=== PATIENT | male | born 1930 | race Caucasian/White ===

== ENCOUNTER 2016-09-15 15:30 | Inpatient (IN) ==
[~2016-09-15 15:30] MED LIST: ADDITIVE ONLY IV ONE; INFUVITE ADULT IV ONE; POTASSIUM CHLORIDE IV ONE; [UNRECOGNIZED DRUG - OTHER] IV ONE
[2016-09-15 15:49] VITALS: BMI 21.2
[2016-09-15] MEDS ORDERED: TYLENOL PO PRN (16:38)
[2016-09-15] MEDS ORDERED: NITROSTAT SL PRN (17:00)
[2016-09-15] MEDS: ZOSYN 3.375 GM 3.375 GM in SODIUM CHLORIDE 100 ML IV SCH ×2 (18:17→23:00)
[2016-09-15] MEDS: CALMOSEPTINE OINTMENT TP SCH (20:35)
[2016-09-15] MEDS ORDERED: CLINIMIX E 4.25%-5% SOLUTION 1,000 ML IV ONE (22:00)
[2016-09-16 05:10] LABS: BASOPHILS % (AUTO) 0.4 % (0.0-3.0); EOSINOPHILS # (AUTO) 0.5 K/ul (0.0-0.7); EOSINOPHILS % (AUTO) 5.6 % (0.0-7.0); HEMATOCRIT 33.2 % (42.0-52.0); HEMOGLOBIN 10.6 g/dl (14.0-18.0); IMMATURE GRANULOCYTE % (AUTO) 0.6 % (0.0-5.0); LYMPHOCYTES # (AUTO) 0.6 K/uL (0.60-3.4); LYMPHOCYTES % (AUTO) 7.7 (10.0-50.0); MEAN CORPUSCULAR HEMOGLOBIN 27.4 pg (27.0-31.0); MEAN CORPUSCULAR HGB CONC 31.9 (31.8-35.4); MEAN CORPUSCULAR VOLUME 85.8 fl (80.0-94.0); MONOCYTES # (AUTO) 0.7 K/uL (0.4-2.0); MONOCYTES % (AUTO) 8.9 (0-10); NEUTROPHILS # (AUTO) 6.1 K/ul (2.0-6.9); NEUTROPHILS % (AUTO) 76.8; PLATELET COUNT 203 10^3/uL (140-440); RED BLOOD COUNT 3.87 10^6/ul (4.70-6.10); WHITE BLOOD COUNT 7.97 K/ul (4.2-10.2)
[2016-09-16 05:36] LABS: ALBUMIN 1.5 g/dL (3.4-5.0); ALBUMIN/GLOBULIN RATIO 0.41; ANION GAP 7.2; BILIRUBIN,TOTAL 0.84 mg/dL (0.00-1.20); BUN/CREATININE RATIO 18.57; CALCIUM 7.4 mg/dL (8.2-10.2); CREATININE 0.7 mg/dL (0.60-1.10); POTASSIUM 4.2 mmol/L (3.5-5.1); TOTAL PROTEIN 5.2 g/dL (5.8-8.1)
[2016-09-16] MEDS: ZOSYN 3.375 GM 3.375 GM in SODIUM CHLORIDE 100 ML IV SCH ×4 (06:03→23:07)
[2016-09-16] MEDS: LOVENOX SUBCUT SCH (09:31)
[2016-09-16] MEDS: CALMOSEPTINE OINTMENT TP SCH ×2 (09:31→20:19)
[2016-09-16] MEDS: VITAMIN B-12 IM SCH (09:31)
[2016-09-16] MEDS: CORDARONE PO SCH (09:32)
[2016-09-16] MEDS ORDERED: INTRALIPID 20% IV ONE (14:00)
[2016-09-16] MEDS ORDERED: CALMOSEPTINE OINTMENT TP ONE (20:18)
[2016-09-17] MEDS ORDERED: POTASSIUM CHLORIDE IV ONE (01:30)
[2016-09-17] MEDS ORDERED: [UNRECOGNIZED DRUG - OTHER] IV ONE (01:30)
[2016-09-17] MEDS ORDERED: INFUVITE ADULT IV ONE (01:30)
[2016-09-17] MEDS ORDERED: ADDITIVE ONLY IV ONE (01:30)
[2016-09-17] MEDS: ZOSYN 3.375 GM 3.375 GM in SODIUM CHLORIDE 100 ML IV SCH ×3 (05:19→18:15)
[2016-09-17] MEDS: CALMOSEPTINE OINTMENT TP SCH (09:54)
[2016-09-17] MEDS: CORDARONE PO SCH (09:54)
[2016-09-17] MEDS: LOVENOX SUBCUT SCH (09:54)
[2016-09-17] MEDS ORDERED: CLINIMIX E 4.25%-5% SOLUTION 1,000 ML IV ONE (11:30)
[2016-09-18] MEDS: CALMOSEPTINE OINTMENT TP SCH ×3 (00:15→21:02)
[2016-09-18] MEDS: ZOSYN 3.375 GM 3.375 GM in SODIUM CHLORIDE 100 ML IV SCH ×5 (00:17→23:39)
[2016-09-18] MEDS ORDERED: INTRALIPID 20% IV ONE (04:00)
[2016-09-18 05:47] LABS: BASOPHILS # (AUTO) 0.1 K/uL (0-0.2); BASOPHILS % (AUTO) 0.7 % (0.0-3.0); EOSINOPHILS # (AUTO) 0.5 K/ul (0.0-0.7); EOSINOPHILS % (AUTO) 6.2 % (0.0-7.0); HEMATOCRIT 32.7 % (42.0-52.0); HEMOGLOBIN 10.8 g/dl (14.0-18.0); IMMATURE GRANULOCYTE % (AUTO) 2.6 % (0.0-5.0); LYMPHOCYTES % (AUTO) 10.9 (10.0-50.0); MEAN CORPUSCULAR VOLUME 84.7 fl (80.0-94.0); MONOCYTES # (AUTO) 0.9 K/uL (0.4-2.0); MONOCYTES % (AUTO) 10.5 (0-10); NEUTROPHILS # (AUTO) 6.1 K/ul (2.0-6.9); NEUTROPHILS % (AUTO) 69.1; PLATELET COUNT 255 10^3/uL (140-440); RED BLOOD COUNT 3.86 10^6/ul (4.70-6.10); WHITE BLOOD COUNT 8.77 K/ul (4.2-10.2)
[2016-09-18 06:11] LABS: ALBUMIN 1.6 g/dL (3.4-5.0); ALBUMIN/GLOBULIN RATIO 0.37; ANION GAP 9.2; BILIRUBIN,TOTAL 0.75 mg/dL (0.00-1.20); BUN/CREATININE RATIO 21.42; CALCIUM 7.6 mg/dL (8.2-10.2); CREATININE 0.7 mg/dL (0.60-1.10); POTASSIUM 4.2 mmol/L (3.5-5.1); TOTAL PROTEIN 5.9 g/dL (5.8-8.1)
[2016-09-18] MEDS: VITAMIN B-12 IM SCH (10:37)
[2016-09-18] MEDS: LOVENOX SUBCUT SCH (10:38)
[2016-09-18] MEDS: CORDARONE PO SCH (10:38)
[2016-09-18] MEDS ORDERED: INFUVITE ADULT IV ONE (16:00)
[2016-09-18] MEDS ORDERED: POTASSIUM CHLORIDE IV ONE (16:00)
[2016-09-18] MEDS ORDERED: ADDITIVE ONLY IV ONE (16:00)
[2016-09-18] MEDS ORDERED: [UNRECOGNIZED DRUG - OTHER] IV ONE (16:00)
[2016-09-19] MEDS ORDERED: POTASSIUM CHLORIDE 20 MEQ VIAL-ADDITIVE ONLY IV ONE (01:52)
[2016-09-19] MEDS ORDERED: INFUVITE ADULT IV ONE (01:53)
[2016-09-19] MEDS: INFUVITE ADULT IV ONE (02:00)
[2016-09-19] MEDS: [UNRECOGNIZED DRUG - OTHER] IV ONE (02:00)
[2016-09-19] MEDS: ADDITIVE ONLY IV ONE (02:00)
[2016-09-19] MEDS ORDERED: CLINIMIX E 4.25%-5% SOLUTION 1,000 ML IV ONE (02:00)
[2016-09-19] MEDS: POTASSIUM CHLORIDE IV ONE (02:00)
[2016-09-19] MEDS: ZOSYN 3.375 GM 3.375 GM in SODIUM CHLORIDE 100 ML IV SCH ×4 (05:16→23:42)
[2016-09-19] MEDS: LOVENOX SUBCUT SCH (09:55)
[2016-09-19] MEDS: CORDARONE PO SCH (09:55)
[2016-09-19] MEDS: CALMOSEPTINE OINTMENT TP SCH ×2 (09:55→20:19)
[2016-09-19] MEDS ORDERED: INTRALIPID 20% IV ONE (18:00)
[2016-09-20 04:52] LABS: BASOPHILS # (AUTO) 0.1 K/uL (0-0.2); BASOPHILS % (AUTO) 0.7 % (0.0-3.0); EOSINOPHILS # (AUTO) 0.5 K/ul (0.0-0.7); EOSINOPHILS % (AUTO) 5.9 % (0.0-7.0); HEMOGLOBIN 10.3 g/dl (14.0-18.0); LYMPHOCYTES % (AUTO) 12.5 (10.0-50.0); MEAN CORPUSCULAR HEMOGLOBIN 27.2 pg (27.0-31.0); MEAN CORPUSCULAR HGB CONC 31.2 (31.8-35.4); MEAN CORPUSCULAR VOLUME 87.1 fl (80.0-94.0); MONOCYTES # (AUTO) 0.6 K/uL (0.4-2.0); MONOCYTES % (AUTO) 7.3 (0-10); NEUTROPHILS # (AUTO) 5.4 K/ul (2.0-6.9); NEUTROPHILS % (AUTO) 71.6; PLATELET COUNT 235 10^3/uL (140-440); RED BLOOD COUNT 3.79 10^6/ul (4.70-6.10); WHITE BLOOD COUNT 7.58 K/ul (4.2-10.2)
[2016-09-20 05:03] LABS: ALBUMIN 1.5 g/dL (3.4-5.0); ALBUMIN/GLOBULIN RATIO 0.42; ANION GAP 10.4; BILIRUBIN,TOTAL 0.68 mg/dL (0.00-1.20); BUN/CREATININE RATIO 22.05; CALCIUM 7.5 mg/dL (8.2-10.2); CREATININE 0.68 mg/dL (0.60-1.10); POTASSIUM 4.4 mmol/L (3.5-5.1); TOTAL PROTEIN 5.1 g/dL (5.8-8.1)
[2016-09-20] MEDS: ZOSYN 3.375 GM 3.375 GM in SODIUM CHLORIDE 100 ML IV SCH ×4 (05:24→23:02)
[2016-09-20] MEDS: LOVENOX SUBCUT SCH (11:02)
[2016-09-20] MEDS: CALMOSEPTINE OINTMENT TP SCH ×2 (11:03→21:31)
[2016-09-20] MEDS: CORDARONE PO SCH (11:04)
[2016-09-20] MEDS: VITAMIN B-12 IM SCH (11:09)
[2016-09-20] MEDS ORDERED: INFUVITE ADULT IV ONE (19:04)
[2016-09-20] MEDS ORDERED: POTASSIUM CHLORIDE 20 MEQ VIAL-ADDITIVE ONLY IV ONE ×2 (19:04→19:06)
[2016-09-20] MEDS: [UNRECOGNIZED DRUG - OTHER] IV ONE (19:56)
[2016-09-20] MEDS: POTASSIUM CHLORIDE IV ONE (19:56)
[2016-09-20] MEDS: ADDITIVE ONLY IV ONE (19:56)
[2016-09-20] MEDS: INFUVITE ADULT IV ONE (19:56)
[2016-09-21] MEDS: ZOSYN 3.375 GM 3.375 GM in SODIUM CHLORIDE 100 ML IV SCH (05:02)
[2016-09-21] MEDS ORDERED: INTRALIPID 20% IV ONE (08:00)
[2016-09-21] MEDS: CORDARONE PO SCH (08:26)
[2016-09-21] MEDS: LOVENOX SUBCUT SCH (08:26)
[2016-09-21] MEDS: CALMOSEPTINE OINTMENT TP SCH (08:26)
[2016-09-21] MEDS: CLINIMIX E 4.25%-5% SOLUTION 1,000 ML IV ONE ×2 (09:09→09:10)
[2016-09-21] MEDS ORDERED: [UNRECOGNIZED DRUG - OTHER] IV ONE (20:00)
[2016-09-21] MEDS ORDERED: INFUVITE ADULT IV ONE (20:00)
[2016-09-21] MEDS ORDERED: POTASSIUM CHLORIDE IV ONE (20:00)
[2016-09-21] MEDS ORDERED: ADDITIVE ONLY IV ONE (20:00)
[2016-09-22] MEDS: CALMOSEPTINE OINTMENT TP SCH ×3 (00:58→23:49)
[2016-09-22 05:26] LABS: BASOPHILS # (AUTO) 0.1 K/uL (0-0.2); BASOPHILS % (AUTO) 0.8 % (0.0-3.0); EOSINOPHILS # (AUTO) 0.4 K/ul (0.0-0.7); EOSINOPHILS % (AUTO) 4.6 % (0.0-7.0); HEMATOCRIT 34.2 % (42.0-52.0); HEMOGLOBIN 11.3 g/dl (14.0-18.0); IMMATURE GRANULOCYTE % (AUTO) 1.4 % (0.0-5.0); LYMPHOCYTES # (AUTO) 1.2 K/uL (0.60-3.4); LYMPHOCYTES % (AUTO) 14.4 (10.0-50.0); MEAN CORPUSCULAR HEMOGLOBIN 28.3 pg (27.0-31.0); MEAN CORPUSCULAR VOLUME 85.5 fl (80.0-94.0); MONOCYTES # (AUTO) 0.6 K/uL (0.4-2.0); MONOCYTES % (AUTO) 6.5 (0-10); NEUTROPHILS # (AUTO) 6.1 K/ul (2.0-6.9); NEUTROPHILS % (AUTO) 72.3; PLATELET COUNT 311 10^3/uL (140-440); WHITE BLOOD COUNT 8.41 K/ul (4.2-10.2)
[2016-09-22 05:48] LABS: ALBUMIN 1.7 g/dL (3.4-5.0); ALBUMIN/GLOBULIN RATIO 0.38; ANION GAP 12.1; BILIRUBIN,TOTAL 0.7 mg/dL (0.00-1.20); BUN/CREATININE RATIO 21.73; CALCIUM 7.7 mg/dL (8.2-10.2); CREATININE 0.69 mg/dL (0.60-1.10); POTASSIUM 4.1 mmol/L (3.5-5.1); TOTAL PROTEIN 6.2 g/dL (5.8-8.1)
[2016-09-22] MEDS ORDERED: CLINIMIX E 4.25%-5% SOLUTION 1,000 ML IV ONE ×2 (06:00→23:30)
[2016-09-22] MEDS: VITAMIN B-12 IM SCH (09:50)
[2016-09-22] MEDS: LOVENOX SUBCUT SCH (09:50)
[2016-09-22] MEDS: CORDARONE PO SCH (09:50)
[2016-09-22] MEDS ORDERED: [UNRECOGNIZED DRUG - OTHER] IV ONE (14:00)
[2016-09-22] MEDS ORDERED: INFUVITE ADULT IV ONE (14:00)
[2016-09-22] MEDS ORDERED: ADDITIVE ONLY IV ONE (14:00)
[2016-09-22] MEDS ORDERED: POTASSIUM CHLORIDE IV ONE (14:00)
[2016-09-22] MEDS ORDERED: INTRALIPID 20% IV ONE (22:00)
[2016-09-23] MEDS: CORDARONE PO SCH (08:37)
[2016-09-23] MEDS: LOVENOX SUBCUT SCH (08:38)
[2016-09-23] MEDS: CALMOSEPTINE OINTMENT TP SCH (08:39)
[2016-09-23] MEDS ORDERED: INTRALIPID 20% IV ONE (17:00)
[2016-09-24] MEDS: CALMOSEPTINE OINTMENT TP SCH ×3 (02:57→23:37)
[2016-09-24] MEDS ORDERED: POTASSIUM CHLORIDE IV ONE (05:00)
[2016-09-24] MEDS ORDERED: ADDITIVE ONLY IV ONE (05:00)
[2016-09-24] MEDS ORDERED: [UNRECOGNIZED DRUG - OTHER] IV ONE (05:00)
[2016-09-24] MEDS ORDERED: INFUVITE ADULT IV ONE (05:00)
[2016-09-24 06:35] LABS: BASOPHILS # (AUTO) 0.1 K/uL (0-0.2); BASOPHILS % (AUTO) 0.6 % (0.0-3.0); EOSINOPHILS # (AUTO) 0.1 K/ul (0.0-0.7); EOSINOPHILS % (AUTO) 0.9 % (0.0-7.0); HEMATOCRIT 37.6 % (42.0-52.0); HEMOGLOBIN 12.2 g/dl (14.0-18.0); IMMATURE GRANULOCYTE % (AUTO) 0.5 % (0.0-5.0); LYMPHOCYTES # (AUTO) 1.1 K/uL (0.60-3.4); LYMPHOCYTES % (AUTO) 11.5 (10.0-50.0); MEAN CORPUSCULAR HEMOGLOBIN 28.2 pg (27.0-31.0); MEAN CORPUSCULAR HGB CONC 32.4 (31.8-35.4); MONOCYTES # (AUTO) 0.5 K/uL (0.4-2.0); MONOCYTES % (AUTO) 5.6 (0-10); NEUTROPHILS # (AUTO) 7.6 K/ul (2.0-6.9); NEUTROPHILS % (AUTO) 80.9; PLATELET COUNT 317 10^3/uL (140-440); RED BLOOD COUNT 4.32 10^6/ul (4.70-6.10); WHITE BLOOD COUNT 9.39 K/ul (4.2-10.2)
[2016-09-24 06:58] LABS: ALBUMIN 1.9 g/dL (3.4-5.0); ALBUMIN/GLOBULIN RATIO 0.41; ANION GAP 10.5; BILIRUBIN,TOTAL 0.66 mg/dL (0.00-1.20); BUN/CREATININE RATIO 27.53; CALCIUM 8.1 mg/dL (8.2-10.2); CREATININE 0.69 mg/dL (0.60-1.10); POTASSIUM 4.5 mmol/L (3.5-5.1); TOTAL PROTEIN 6.5 g/dL (5.8-8.1)
[2016-09-24] MEDS: VITAMIN B-12 IM SCH (09:12)
[2016-09-24] MEDS: LOVENOX SUBCUT SCH (09:12)
[2016-09-24] MEDS: CORDARONE PO SCH (09:13)
--- NOTE | 2016-09-24 13:10 | PN ---
DATE OF VISIT: 09/24/16 Mr. Morales was a resident at [facility]. The patient was brought to the emergency room because of hematuria secondary to repeated attempts of insertion of Green catheter. The patient on arrival at the [facility] had no urine in the bag. The patient was evaluated and the patient was not responsive to verbal stimulus. He does respond to pain stimulation. His mouth was open and breathing through the mouth. In the course of the work-up the patient was noted to be dehydrated with some electrolyte imbalance with a sodium of 161. The patient fell last July 2016 and the patient continued to deteriorate since then. He did complain of back pain. He did have some compression fractures. The patient has senile dementia, plus Alzheimer's. The patient was admitted on 09/07/16 to acute care and discharged to Transitional care on . He is going to be discharged to the half-way. In the interim, discussion was made with regards to mentating his nutrition. The family decided to just try to feed him instead of having artificial means such as G- tube, nasogastric tube feeding. This directive calls for not prolonging his life with artificial means. The patient has been improving slightly and indeed he opened his eyes upon calling his name. His breathing is not as rapid as before. He does have some ulceration, but the redness of the entire buttocks has resolved. It was markedly irritated at the time of admission and the family had seen it for the first time. This patient will be transferred to the half-way today because of his end stage dementia, Alzheimer's plus senile. The patient is given food, pureed, and sitting while being fed. The patient did have some anemia, but not severe. The patient's temperature today at 6 a.m. was 97.9 axillary, pulse 84, blood pressure 122/64, respiratory rate 24. The patient is using oxygen nasal at 2 Liters. He weighed 137 pounds on admission. His labs today showed a CBC with hemoglobin 12.2, hematocrit 37.6, WBC 9.39. RDW 16.4, elevated. Electrolytes now normal. The hypernatremia has been corrected and the sodium is now 133, potassium 4.5, chloride 101, CO2 26. BUN is 19, creatinine is 0.69. GFR 108. Blood sugar normal at 102. Calcium 8.1. AST slightly elevated at 65, ALT normal. Total protein 6.5, improving and albumin still low at 9.1, globulin 4.6. PROGNOSIS: Poor. The patient is a DNR and will be transferred today to [facility]. DIAGNOSIS: 1. END STAGE ALZHEIMER'S DISEASE 2. MILD TO MODERATE ANEMIA 3. 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 HISTORY OF HYPERTENSION 5. HISTORY OF COMPRESSION FRACTURES The orders to the half-way will be written when he is discharged. DAWSON
[2016-09-25] MEDS: LOVENOX SUBCUT SCH (09:47)
[2016-09-25] MEDS: CORDARONE PO SCH (09:48)
[2016-09-25] MEDS: CALMOSEPTINE OINTMENT TP SCH (09:48)
[2016-09-25] MEDS: MORPHINE 2 MG/ML SYRINGE IVP PRN (16:09)
[2016-09-26] MEDS: CALMOSEPTINE OINTMENT TP SCH ×2 (00:42→08:48)
[2016-09-26 07:28] LABS: BASOPHILS # (AUTO) 0.1 K/uL (0-0.2); BASOPHILS % (AUTO) 0.6 % (0.0-3.0); EOSINOPHILS % (AUTO) 0.1 % (0.0-7.0); HEMATOCRIT 43.2 % (42.0-52.0); HEMOGLOBIN 13.2 g/dl (14.0-18.0); IMMATURE GRANULOCYTE % (AUTO) 0.7 % (0.0-5.0); LYMPHOCYTES # (AUTO) 1.1 K/uL (0.60-3.4); LYMPHOCYTES % (AUTO) 8.7 (10.0-50.0); MEAN CORPUSCULAR HGB CONC 30.6 (31.8-35.4); MEAN CORPUSCULAR VOLUME 91.5 fl (80.0-94.0); MONOCYTES # (AUTO) 0.7 K/uL (0.4-2.0); MONOCYTES % (AUTO) 5.6 (0-10); NEUTROPHILS # (AUTO) 10.7 K/ul (2.0-6.9); NEUTROPHILS % (AUTO) 84.3; PLATELET COUNT 367 10^3/uL (140-440); RED BLOOD COUNT 4.72 10^6/ul (4.70-6.10); WHITE BLOOD COUNT 12.64 K/ul (4.2-10.2)
[2016-09-26 07:44] LABS: ALBUMIN/GLOBULIN RATIO 0.44; ANION GAP 20.4; BUN/CREATININE RATIO 30.18; CALCIUM 8.7 mg/dL (8.2-10.2); CREATININE 1.06 mg/dL (0.60-1.10); POTASSIUM 5.4 mmol/L (3.5-5.1); TOTAL PROTEIN 6.5 g/dL (5.8-8.1)
[2016-09-26] MEDS: LOVENOX SUBCUT SCH (08:49)
[2016-09-26] MEDS: VITAMIN B-12 IM SCH (08:49)
[2016-09-26] MEDS: CORDARONE PO SCH (08:50)
[2016-09-26] MEDS: MORPHINE 2 MG/ML SYRINGE IVP PRN (16:35)
[2016-09-26 17:43] VITALS: BP 102/52; TEMP 97.8
--- NOTE | 2016-09-27 13:52 | PN ---
DATE OF VISIT: 09/26/16 SUBJECTIVE: The patient, relatives, and three children were in the room with Hospice lady. She had discussed about Hospice and their aim is to make him comfortable. The patient had not been eating very much. This patient will be given pureed diet and any liquids that he can drink or tolerate. He will discharged back to the care home. The family has rejected the idea of artificial feeding either of PEG tube or central line. I did express to the family that I don't know how long or how many days he has. LABS: CBC today showed slightly elevated WBC, electrolytes normal except for slightly elevated potassium, BUN is 32 and creatinine 1.06, GFR 66. AST still slightly elevated at 72. PLAN: The patient will be transported to the care home today and will be given Roxanol 5mg Q 2 hours PRN. Orders were written for Carbocysteine to applied to the buttock and perineal area twice a day. Turn to side every two hours, completely to the side. Feed him at upright posture. Vital signs daily. PROGNOSIS: Grim MTDD
--- NOTE | 2016-09-29 14:41 | PN ---
DATE OF VISIT: 09/24/16 The patient was arousable and opens his eyes. His color is good. The patient has problems swallowing at times. The family, however, had decided against artificial maintenance of his nutrition. He will be fed slowly and painstakingly. The area in the buttocks, the redness, has resolved. He has an fissure on the right medial side of the buttocks about the upper coccyx. No drainage. The patient is receiving nasal oxygen. The patient is breathing mostly through his mouth. LUNGS: Have diminished breath sounds with a few rales and no wheezing. HEART: Audible with good tones and mostly regular. ABDOMEN: Nontender. LOWER EXTREMITIES: No significant edema. PROGNOSIS: Very poor. This patient is going to , when is most likely sooner. The patient had a CBC and CMP today and the WBC is normal. Hemoglobin and hematocrit below normal. Moderate anemia. RDW 16.4, elevated. Electrolytes unremarkable with 133 sodium. BUN 19. E GFR 108. Calcium 8.1, AST 75, Albumin 1.9, total protein 6.5. ASSESSMENT: 1. LETHARGY, AROUSABLE, END STAGE DEMENTIA/ALZHEIMER'S 2. 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 MARKEDLY IRRITATED BILATERAL BUTTOCKS AND PERINEAL AREA, MARKEDLY IMPROVED 4. FISSURE ULCERATION, NO DRAINAGE RIGHT PERICOCCYGEAL AREA PROGNOSIS: Very poor. MTDD
--- NOTE | 2016-09-29 14:55 | PN ---
DATE OF VISIT: 09/25/16 I was in the hospital about 3:30 to 4:00 in the morning to see another patient. While in the hospital, I met the relatives, the patient's and I asked them why they are here and she told me that a nurse had called them that he has been coughing and maybe choking. I told them that the nurse has not contacted me or may be unable to get in touch with me. When I saw the patient, the patient has not been coughing and he is slightly tachypneic, but no cyanosis. The oxygen is changed from nasal to a mask. The patient's condition is somewhat stable or maybe slightly down hill. As to when he will go is unknown, but the end seemed to be emergent. DAWSON
--- NOTE | 2016-09-29 15:20 | PN ---
DATE OF VISIT: 09/25/16 AT 1600 The patient this afternoon, 1600, is responsive to pain stimuli. He does open his eyes when you call his name. He is slightly tachypneic. LUNGS: Still has a few rales and diminished breath sounds. HEART: Regular with good tones most of the time. ABDOMEN: Nontender. UPPER EXTREMITIES: Both upper extremities are edematous. LOWER EXTREMITIES: Does not have any edema. This patient had bilateral basilar pneumonia on CT 09/07/2016. The patient had been on Zosyn and that had been discontinued. He had MRSA on the buttocks, but has more or less resolved. The pneumonia maybe partly due to aspiration. This patient was given IV consisting of Dextrose alternating with Clinimix and and then Liposyn. He also received Avelox 600 mg IV every 12 hours. This patient does have some renal impairment. The family had rejected about the idea of a PEG tube or nasogastric tube for feeding or a central line for IV hyperalimentation. MTDD
--- NOTE | 2016-12-17 11:37 | PN ---
DATE OF VISIT: 09/16/16 This patient was discharged from acute care yesterday, 09/15/16, to Transitional Care. The patient is requiring continuous port for nutrition. He is getting IV fluids consisting of Dextrose, alternating with Aminocin and Liposin. The patient is not able to eat enough solids or liquids, so this will be continued until such time that he is able to or if the family has decided to either put the feeding gastrostomy or nasogastric tube for feeding. I advised them that the amount of calories we are giving him is not enough to sustain him. LUNGS: Lungs are difficult to evaluate, since the patient does not follow verbal commands. HEART: Audible with good tones and regular. ABDOMEN: No remarkable tenderness. MTDD
--- NOTE | 2016-12-17 11:44 | PN ---
DATE OF VISIT: 09/17/16 This patient, today, is about the same with regards to his general condition. He had a low grade temperature at 99.6 axillary at 6 a.m. of 09/17/2016. At 6 p.m. the temperature was 97.6 axillary, pulse 96, blood pressure 98/50, respiratory rate 24. He is on 2 liters of nasal oxygen. He still does open his eyes when you call his name. He follows no verbal commands. He does respond to pain stimulus. LUNGS: No obvious rales. CBC yesterday, 09/16/16, showed a moderate anemia at 10.8 gram hemoglobin, 32.7 hematocrit. Chemistries showed a sodium of 133, otherwise the rest are normal. E GFR is 106. BUN 13, creatinine 0.7. AST and ALT slightly elevated at 137 and 114 respectively. Total protein is low, as well as the serum calcium at 7.4. Albumin is 1.5. CONDITION: Stable at this time. MTDD
--- NOTE | 2016-12-17 13:05 | PN ---
DATE OF VISIT: 09/18/16 This patient still opens his eyes when you call his name. It is a little slightly tachypneic. No cyanosis. His hemoglobin is 10.3, hematocrit 33, white cell count 7,580 and platelet count is [id number]. Sodium is still slightly lower, but the chlorides and potassium are normal. The GFR remained good at 110. His sugar is down to 109. Calcium is low at 7.5 and total protein is low at 5.1. Albumin is 1.5. LUNGS: Difficult to hear any since he doesn't take a deep breath. HEART: Still regular. ABDOMEN: No tenderness. The area on the back has healed and there is a superficial area at the end of the coccyx, but no drainage. MTDD
--- NOTE | 2016-12-17 13:11 | PN ---
DATE OF VISIT: 09/19/2016 The patient is sleeping most of the time. He does open his eyes occasionally when you call his name. He is not dyspneic, nor tachypneic. Oxygen saturation is 97 at 2 liters. LUNGS: Difficult to access at this time. HEART: Normal sinus rhythm. ABDOMEN: Flat, soft. Bowel sounds are active. LOWER EXTREMITIES: Persistent bilateral edema. Green catheter is in place. The area on the buttocks has healed, but Calmoseptine is continued to be applied. This patient has an area at the end of the coccyx, which is open, but no drainage. No labs today, they will be done tomorrow. MTDD
--- NOTE | 2016-12-17 13:18 | PN ---
DATE OF VISIT: 09/20/2016 The patient is mostly sleeping and wakes up at times when you call his name. He is responsive to pain stimulus, but not verbal. His hemoglobin is 10.3, hematocrit 33, white count normal at 7,580, platelet count 235,000. The sodium remained about the same at 133 to 134. E GFR remained good at 110. He is continued on Zosyn, as well as Clinimix and Intralipids. He is also getting B12, but in spite of this the patient's condition had remained about the same, although better than on admission. VITAL SIGNS: 5:49 p.m. on 09/20/2016 showed a temperature 97.9, axillary, pulse 96, blood pressure 90/50, respiratory rate 18, oxygen saturation not done. The patient is on 2 liters. MTDD
--- NOTE | 2016-12-17 13:24 | PN ---
DATE OF VISIT: 09/21/2016 Temperature at 6 o'clock in the afternoon 98 orally, pulse 88, blood pressure 107/54, respiratory rate 20. He is responsive only to pain stimulus. Labs on 09/20/16 were essentially the same as previous. Sodium remained at 134 and E GFR remained high at 110 yesterday. No labs done today. The patient was able to take the morning medication with applesauce. He would not open his eyes and no verbal interaction. He was able to swallow the applesauce without signs of aspiration or coughing. The patient was not dyspneic, nor tachypneic. Oral secretion was suctioned. The patient has some cough, but mostly nonproductive. Oral tracheal suction is done to remove the secretion. HEART: Still regular. LEGS: Still edematous. MTDD
--- NOTE | 2016-12-17 13:30 | PN ---
DATE OF VISIT: 09/22/16 The patient's temperature today at 6 p.m. is 98.6, although this patient has some low grade temperature in between, axillary. Pulse 96, blood pressure 112/ 64, respiratory rate 20 and no oximetry done. The patient's oral intake today is less than yesterday at 282 and was 563 yesterday. The output is less. He is responsive to pain stimulus, but not dyspneic, nor tachypneic. CBC 11.3 hemoglobin, hematocrit 34.2, sodium was still 134, BUN remained at 15, calcium 7.7, total protein 6.2. This may be a function of dehydration. HEART: Still regular. LUNGS: Difficult to evaluate again. MTDD
--- NOTE | 2016-12-17 13:35 | PN ---
DATE OF VISIT: 09/23/16 The patient, today, is awake and tries to talk, but is unable to get the voice out. He does not want to move his upper extremities or just his whole body. VITAL SIGNS: At 6 o'clock in the evening, temperature 97.6, pulse 84, blood pressure 102/74, respiratory rate 18. LABS: None today, but was done yesterday. Hemoglobin is up at 11.3. Sodium remained the same at 134. E GFR is less from 110 to 108. ALT is now normal and the AST is close to normal. The reason for the AST and ALT elevation is not quite clear. The albumin remained low, but better. PROGNOSIS: Very poor. MTDD
== END 2016-09-26 19:52 | DRG 696 ==
LOC: SCU 15:30 → MEDSURG B 09-17 00:10
PROVIDERS: ADMIT General Practice; ATTEND General Practice
DX: R32 Unspecified urinary incontinence (principal); E87.0 Hyperosmolality and hypernatremia; J90 Pleural effusion, not elsewhere classified; E87.1 Hypo-osmolality and hyponatremia; M48.54XA Collapsed vertebra, not elsewhere classified, thoracic region, initial encounter for fracture; M48.56XA Collapsed vertebra, not elsewhere classified, lumbar region, initial encounter for fracture; T83.091A Other mechanical complication of indwelling urethral catheter, initial encounter; R31.0 Gross hematuria; D64.9 Anemia, unspecified; L98.419 Non-pressure chronic ulcer of buttock with unspecified severity; G30.1 Alzheimer's disease with late onset; F02.80 Dementia in other diseases classified elsewhere, unspecified severity, without behavioral disturbance, psychotic disturbance, mood disturbance, and anxiety; E88.09 Other disorders of plasma-protein metabolism, not elsewhere classified; R76.8 Other specified abnormal immunological findings in serum; R13.10 Dysphagia, unspecified; I10 Essential (primary) hypertension; I48.91 Unspecified atrial fibrillation; R63.0 Anorexia; E77.8 Other disorders of glycoprotein metabolism; E86.0 Dehydration; R53.83 Other fatigue; Z20.828 Contact with and (suspected) exposure to other viral communicable diseases; Z79.899 Other long term (current) drug therapy
CPT/HCPCS: 36415; 80053; 85025; 97802; 99308; 99315

== ENCOUNTER 2016-09-26 19:58 | Outpatient (CLI) | END 2016-09-26 19:59 | LOC: AMBL 19:58 | PROVIDERS: ATTEND Family Medicine | DX: R40.20 Unspecified coma (principal); F03.90 Unspecified dementia, unspecified severity, without behavioral disturbance, psychotic disturbance, mood disturbance, and anxiety ==